=== PATIENT | female | born 1970 | race Caucasian/White ===

== ENCOUNTER 2019-08-16 21:05 | Emergency (ER) | payer MEDICAID ==
[2019-08-16 21:21] VITALS: BP 109/84; PULSE 125
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
[2019-08-16 22:54] LABS: ACETAMINOPHEN 10.1 ug/mL
[2019-08-16 22:56] LABS: CHLORIDE,CL 97 mmol/L (101-111); SODIUM,NA 136 mmol/L (135-145)
== END 2019-08-16 23:50 | disposition home or self-care (01) ==
LOC: DL.ED 21:05
DX: F43.10 Post-traumatic stress disorder, unspecified (principal); F13.20 Sedative, hypnotic or anxiolytic dependence, uncomplicated; F11.90 Opioid use, unspecified, uncomplicated; R40.0 Somnolence; J44.9 Chronic obstructive pulmonary disease, unspecified; F41.9 Anxiety disorder, unspecified; F32.9 Major depressive disorder, single episode, unspecified; E66.9 Obesity, unspecified; Z88.8 Allergy status to other drugs, medicaments and biological substances; Z88.2 Allergy status to sulfonamides; Z86.73 Personal history of transient ischemic attack (TIA), and cerebral infarction without residual deficits; Z79.899 Other long term (current) drug therapy; Z68.32 Body mass index [BMI] 32.0-32.9, adult
CPT/HCPCS: 36415; 80053; 80305-QW; 81003; 82140; 85025; 99284; G0480

== ENCOUNTER 2021-03-02 17:06 | Emergency (ER) | payer MEDICAID ==
[2021-03-02] MEDS ORDERED: Bacitracin Oint 1 GM U/D Packet TOP ONE (17:21)
[2021-03-02] MEDS ORDERED: Sodium Chloride 0.9% 1,000 ML IV ONE (17:22)
[2021-03-02] MEDS ORDERED: HYDROmorphone 0.5 MG/0.5 ML Syringe IVPUSH ONE (17:22)
[2021-03-02] MEDS ORDERED: ceFAZolin 1 GM in Sodium Chloride 0.9% 50 ML IV ONE (17:22)
[2021-03-02] MEDS ORDERED: Lidocaine 2% with EPINEPHrine 1:200,000 20 ML SDV INJECT ONE (17:24)
[2021-03-02 17:25] VITALS: BP 117/70; PULSE 125
[2021-03-02] MEDS ORDERED: Diphtheria,Pertussis(Acell),Tetanus Vaccine 0.5 ML Syringe IM ONE (17:41)
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
[2021-03-02] MEDS ORDERED: Diphtheria,Pertussis(Acell),Tetanus Vaccine 0.5 ML Syringe ONE (18:40)
== END 2021-03-02 18:59 | disposition home or self-care (01) ==
LOC: DL.ED 17:06
DX: S71.112A Laceration without foreign body, left thigh, initial encounter (principal); J44.9 Chronic obstructive pulmonary disease, unspecified; G43.909 Migraine, unspecified, not intractable, without status migrainosus; E66.9 Obesity, unspecified; Z68.26 Body mass index [BMI] 26.0-26.9, adult; Z23 Encounter for immunization; Z88.8 Allergy status to other drugs, medicaments and biological substances; Z88.2 Allergy status to sulfonamides; Z79.899 Other long term (current) drug therapy; W22.8XXA Striking against or struck by other objects, initial encounter
CPT/HCPCS: 12002; 90471; 90715; 96365; 96375; 99283; 99283-25; J0690; J1170; J7030

== ENCOUNTER 2021-09-26 10:50 | Emergency (ER) | payer BC ==
[2021-09-26 11:18] VITALS: BP 99/56; PULSE 76
[2021-09-26 12:23] LABS: ANION GAP 7.5 mEq/L (7-13); CHLORIDE,CL 107 mmol/L (98-107); SODIUM,NA 142 mmol/L (136-145)
== END 2021-09-26 12:43 | disposition home or self-care (01) ==
LOC: DL.ED 10:50
DX: M25.562 Pain in left knee (principal); J44.9 Chronic obstructive pulmonary disease, unspecified; K21.9 Gastro-esophageal reflux disease without esophagitis; E66.9 Obesity, unspecified; Z68.27 Body mass index [BMI] 27.0-27.9, adult; Z86.73 Personal history of transient ischemic attack (TIA), and cerebral infarction without residual deficits; Z88.2 Allergy status to sulfonamides; Z88.8 Allergy status to other drugs, medicaments and biological substances; Z79.899 Other long term (current) drug therapy
CPT/HCPCS: 36415; 73562-LT; 80053; 85025; 86140; 99282; 99283

== ENCOUNTER 2021-10-26 08:59 | Observation (INO) | payer BC, MEDICAID ==
[2021-10-26 10:20] LABS: CORONAVIRUS COVID-19 NAA NEGATIVE (NEGATIVE); RESPIRATORY SYNCYTIAL VIR NAA NEGATIVE (NEGATIVE)
[2021-10-26] MEDS ORDERED: Sodium Chloride 0.9% 1,000 ML IV ONE ×2 (10:33→11:37)
[2021-10-26 11:15] LABS: ANION GAP 10.1 mEq/L (7-13); CHLORIDE,CL 96 mmol/L (98-107); SODIUM,NA 134 mmol/L (136-145)
[2021-10-26] MEDS ORDERED: Iopamidol 612 MG/ML 100 ML Bottle IVPUSH ONE (11:37)
[2021-10-26] MEDS ORDERED: Ondansetron 4 MG/2 ML SDV IVPUSH ONE (11:42)
[2021-10-26] MEDS ORDERED: Acetaminophen 500 MG Tab PO ONE (11:42)
[2021-10-26] MEDS ORDERED: Ciprofloxacin in D5W 400 MG in Premix Bag 1 BAG IV ONE ×2 (11:43)
[2021-10-26] MEDS ORDERED: Polyethylene Glycol 3350 Powder 17 GM Packet PO PRN (14:00)
[2021-10-26] MEDS ORDERED: Albuterol/Ipratropium 3.0-0.5 MG/3 ML Neb Soln NEB PRN (14:00)
[2021-10-26] MEDS ORDERED: HYDROmorphone 0.5 MG/0.5 ML Syringe IVPUSH PRN (14:00)
[2021-10-26] MEDS ORDERED: Ondansetron 4 MG/2 ML SDV IVPUSH PRN (14:00)
[2021-10-26] MEDS ORDERED: Acetaminophen/oxyCODONE 325-5 MG Tab PO PRN ×3 (14:00→18:07)
[2021-10-26] MEDS ORDERED: Sodium Chloride 0.9% 1,000 ML IV SCH (14:15)
[2021-10-26] MEDS ORDERED: cefTRIAXone 2 GM in Sodium Chloride 0.9% 100 ML IV ONE (15:00)
[2021-10-26] MEDS: Acetaminophen 325 MG Tab PO PRN (15:24)
[2021-10-26] MEDS ORDERED: Diazepam 5 MG Tab PO PRN (17:52)
[2021-10-26] MEDS ORDERED: Acetaminophen 500 MG Tab PO PRN (17:52)
[2021-10-26] MEDS ORDERED: Fluticasone NASAL Spray 16 GM Bottle NASBOTH PRN (17:53)
[2021-10-26] MEDS ORDERED: LEVALBUTEROL TARTRATE AD INH PRN (17:53)
[2021-10-26] MEDS ORDERED: Ondansetron 4 MG Tab.DIS PO PRN (17:53)
[2021-10-26] MEDS ORDERED: METHOCARBAMOL 500 MG PO PRN (17:53)
[2021-10-26] MEDS ORDERED: Albuterol/Ipratropium 3.0-0.5 MG/3 ML Neb Soln NEB SCH (18:00)
[2021-10-26] MEDS ORDERED: oxyCODONE 5 MG Tab PO PRN (18:08)
[2021-10-26 18:32] LABS: ANION GAP 12.9 mEq/L (7-13)
[2021-10-26] MEDS ORDERED: Ipratropium 0.02% 0.5 MG/2.5 ML Neb Soln NEB PRN (18:53)
[2021-10-26] MEDS ORDERED: Ciprofloxacin in D5W 400 MG in Premix Bag 1 BAG IV SCH ×2 (21:00)
[2021-10-26] MEDS: atorvaSTATin 10 MG Tab PO SCH (21:39)
[2021-10-26] MEDS: Saccharomyces Boulardii (Probiotic) 250 MG Cap PO SCH (21:40)
[2021-10-26] MEDS: Montelukast 10 MG Tab PO SCH (21:40)
[2021-10-26] MEDS: Formoterol/Mometasone 200-5 MCG 8.8 GM Inhaler IH SCH (21:41)
[2021-10-26] MEDS: Zolpidem 5 MG Tab PO PRN (21:47)
[2021-10-27] MEDS: Acetaminophen 325 MG Tab PO PRN (04:29)
[2021-10-27 06:47] LABS: ANION GAP 12.3 mEq/L (7-13); CHLORIDE,CL 103 mmol/L (98-107); SODIUM,NA 138 mmol/L (136-145)
[2021-10-27] MEDS: cefTRIAXone 2 GM in Sodium Chloride 0.9% 100 ML IV SCH (09:29)
[2021-10-27] MEDS: Saccharomyces Boulardii (Probiotic) 250 MG Cap PO SCH ×2 (09:29→21:01)
[2021-10-27] MEDS: Formoterol/Mometasone 200-5 MCG 8.8 GM Inhaler IH SCH ×2 (09:32→21:01)
[2021-10-27] MEDS: Phenazopyridine 95 MG Tab PO SCH ×3 (10:09→21:02)
[2021-10-27] MEDS ORDERED: Dicyclomine 10 MG Cap PO PRN (11:00)
[2021-10-27] MEDS: MELOXICAM 15 MG PO SCH (11:16)
[2021-10-27] MEDS: Montelukast 10 MG Tab PO SCH (21:02)
[2021-10-27] MEDS: atorvaSTATin 10 MG Tab PO SCH (21:02)
[2021-10-27] MEDS: Zolpidem 5 MG Tab PO PRN (21:49)
[2021-10-28 07:12] LABS: ANION GAP 14.4 mEq/L (7-13)
[2021-10-28 07:49] VITALS: BP 145/79; PULSE 96
[2021-10-28] MEDS: Saccharomyces Boulardii (Probiotic) 250 MG Cap PO SCH (09:01)
[2021-10-28] MEDS: Phenazopyridine 95 MG Tab PO SCH (09:01)
[2021-10-28] MEDS: Formoterol/Mometasone 200-5 MCG 8.8 GM Inhaler IH SCH (09:02)
[2021-10-28] MEDS: MELOXICAM 15 MG PO SCH (09:03)
[2021-10-28] MEDS: cefTRIAXone 2 GM in Sodium Chloride 0.9% 100 ML IV SCH (09:04)
== END 2021-10-28 11:05 | disposition home or self-care (01) ==
LOC: DL.ED 08:59 → DL.MS 13:59 → INTOOBSV 13:59 → UNDOADMOB 13:59 → DL.MS 19:44
PROVIDERS: ADMIT Internal Medicine; ATTEND Internal Medicine
DX: N12 Tubulo-interstitial nephritis, not specified as acute or chronic (principal); N17.9 Acute kidney failure, unspecified; E78.5 Hyperlipidemia, unspecified; J44.9 Chronic obstructive pulmonary disease, unspecified; G43.909 Migraine, unspecified, not intractable, without status migrainosus; E66.9 Obesity, unspecified; D64.9 Anemia, unspecified; E87.1 Hypo-osmolality and hyponatremia; R33.9 Retention of urine, unspecified; F32.A Depression, unspecified; E87.8 Other disorders of electrolyte and fluid balance, not elsewhere classified; F41.0 Panic disorder [episodic paroxysmal anxiety]; R73.9 Hyperglycemia, unspecified; R74.8 Abnormal levels of other serum enzymes; G62.9 Polyneuropathy, unspecified; Z88.2 Allergy status to sulfonamides; Z88.8 Allergy status to other drugs, medicaments and biological substances; Z88.1 Allergy status to other antibiotic agents; Z68.30 Body mass index [BMI] 30.0-30.9, adult; Z86.73 Personal history of transient ischemic attack (TIA), and cerebral infarction without residual deficits; Z79.51 Long term (current) use of inhaled steroids; K21.9 Gastro-esophageal reflux disease without esophagitis; Z20.822 Contact with and (suspected) exposure to COVID-19; Z90.49 Acquired absence of other specified parts of digestive tract; Z87.440 Personal history of urinary (tract) infections; Z86.69 Personal history of other diseases of the nervous system and sense organs; Z87.39 Personal history of other diseases of the musculoskeletal system and connective tissue
CPT/HCPCS: 0241U; 36415; 74177; 80048; 80053; 81001; 82150; 83605; 83690; 83735; 85025; 86140; 94640; 96365; 96367; 96375; 96376; 99284; 99285; A9270; G0378; J0696; J0744; J2405; J7030; Q9967; 99217; 99219; 99225; J7620-GY